=== PATIENT | female | born 1960 | race Caucasian/White ===

== ENCOUNTER 2019-11-07 19:45 | Observation (INO) | payer BC ==
[2019-11-07] MEDS ORDERED: Aspirin 81 MG Tab.Chew PO ONE (19:55)
[2019-11-07] MEDS ORDERED: Nitroglycerin 0.4 MG Tab.SL SL ONE (19:56)
[2019-11-07 20:51] LABS: CHLORIDE,CL 100 mmol/L (98-107); SODIUM,NA 134 mmol/L (136-145)
[2019-11-07] MEDS ORDERED: Iopamidol 755 Mg/ML 100 ML Bottle ONE (20:58)
[2019-11-07] MEDS: Sodium Chloride 0.9% 10 ML Syringe FLUSH PRN ×2 (21:23→22:33)
--- NOTE | 2019-11-07 21:33 | EDM.PDOC ---
ED HPI GENERAL MEDICAL PROBLEM - General Chief Complaint: Chest Pain Stated Complaint: chest pain Time Seen by Provider: 11/07/19 19:50 Source of Information: Reports: Patient History Limitations: Reports: No Limitations - History of Present Illness INITIAL COMMENTS - FREE TEXT/NARRATIVE: Chest pain on/off since last night. Woke patient at 2am. Motrin seemed to help. At times radiates to neck and once to arm. Neck feels tight when this happens. No history of similar issues in past. No injuries. [place] like usual self all day yesterday. No history of CAD/CO. Denies SOB/sweating. Did have mild nausea on and off. No fevers. Negative Covid test a week ago. No other changes reported. No change in pain with eat/drink/burp/laying down/being active. Pain is not so much anterior chest at this time, but now is more so between shoulder blades. Chest Pain Score (Numeric/FACES): 3 - Related Data Allergies Allergy/AdvReac Type Severity Reaction Status Date / Time diphenhydramine AdvReac Nausea and Verified 11/07/19 19:58 [From Benbaudilioryl] Vomiting Home Meds: Home Meds Calcium Carb/D3/Magnesium/Zinc [Bertin Mag Zinc + D Tablet] 1 each PO DAILY 11/07/19 [History] Cholecalciferol (Vitamin D3) [Vitamin D3] 2,000 unit PO DAILY 11/07/19 [History] Citalopram [Citalopram HBr] 20 mg PO DAILY 11/07/19 [History] Levothyroxine Sodium [Synthroid] 112 mcg PO DAILY 11/07/19 [History] Rosuvastatin [Crestor] 5 mg PO DAILY 11/07/19 [History] lisinopriL [Prinivil] 2.5 mg PO DAILY 11/07/19 [History] metFORMIN HCl [Metformin HCl] 500 mg PO BID 11/07/19 [History] Past Medical History HEENT History: Reports: Impaired Vision, Other (See Below) Other HEENT History: TMJ Cardiovascular History: Reports: High Cholesterol Respiratory History: Reports: Sleep Apnea, Other (See Below) Other Respiratory History: CPAP at night Gastrointestinal History: Reports: None Genitourinary History: Reports: None 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: Musculoskeletal History: Reports: None Neurological History: Reports: None Psychiatric History: Reports: Anxiety, Depression Endocrine/Metabolic History: Reports: Diabetes, Type II, Hypothyroidism Hematologic History: Reports: None Immunologic History: Reports: None Oncologic (Cancer) History: Reports: Breast Dermatologic History: Reports: None - Infectious Disease History Infectious Disease History: Reports: Chicken Pox - Past Surgical History Head Surgeries/Procedures: Reports: None HEENT Surgical History: Reports: Oral Surgery Cardiovascular Surgical History: Reports: None Respiratory Surgical History: Reports: None GI Surgical History: Reports: Colonoscopy Female Surgical History: Reports: Tubal Ligation Neurological Surgical History: Reports: None Musculoskeletal Surgical History: Reports: Carpal Tunnel Oncologic Surgical History: Reports: Biopsy of Breast, Lumpectomy Dermatological Surgical History: Reports: None Social & Family History - Family History Cardiac: Reports: Stent - Tobacco Use Smoking Status *Q: Never Smoker - Caffeine Use Caffeine Use: Reports: Soda - Recreational Drug Use Recreational Drug Use: No ED ROS GENERAL - Review of Systems Review Of Systems: See Below Constitutional: Reports: No Symptoms HEENT: Reports: No Symptoms Respiratory: Reports: No Symptoms. Denies: Shortness of Breath, Wheezing, Pleuritic Chest Pain, Cough, Sputum, Hemoptysis Cardiovascular: Reports: Chest Pain. Denies: Dyspnea on Exertion, Edema, Light headedness, Orthopnea, Palpitations, PND, Syncope GI/Abdominal: Reports: Nausea. Denies: Abdominal Pain, Constipation, Diarrhea, Vomiting : Reports: No Symptoms Musculoskeletal: Reports: No Symptoms Skin: Reports: No Symptoms Neurological: Reports: No Symptoms Psychiatric: Reports: No Symptoms Hematologic/Lymphatic: Reports: No Symptoms ED EXAM, GENERAL - Physical Exam Exam: See Below Exam Limited By: No Limitations General Appearance: Alert, WD/WN, No Apparent Distress Eye Exam: Bilateral Eye: EOMI, PERRL Ears: Normal External Exam, Hearing Grossly Normal Nose: No: Nasal Deformity, Nasal Swelling, Nasal Drainage Throat/Mouth: Normal Lips, Normal Voice, No Airway Compromise Head: Atraumatic, Normocephalic Neck: Normal Inspection, Supple, Non-Tender, Full Range of Motion. No: Lymphadenopathy (L), Lymphadenopathy (R) Respiratory/Chest: No Respiratory Distress, Lungs Clear, Normal Breath Sounds, No Accessory Muscle Use, Other (Some tenderness with palpation of soft tissue above left scapula which partially reproduces patient's pain) Cardiovascular: Normal Peripheral Pulses, Regular Rate, Rhythm, No Edema, No Murmur GI/Abdominal: Soft, Non-Tender (Female) Exam: Deferred Rectal (Female) Exam: Deferred Back Exam: Paraspinal Tenderness (above left medial scapular border), Vertebral Tenderness. No: CVA Tenderness (L), CVA Tenderness (R), Muscle Spasm Extremities: Normal Inspection, Normal Range of Motion, Non-Tender, No Pedal Edema, Normal Capillary Refill Neurological: Alert, Oriented, Normal Cognition, Normal Gait, No Motor/Sensory Deficits Psychiatric: Normal Affect, Normal Mood Skin Exam: Warm, Dry, Intact, Normal Color EKG INTERPRETATION EKG Date: 11/07/19 Time: 19:56 Rhythm: NSR Rate (Beats/Min): 79 Cable: Normal P-Wave: Present QRS: Normal ST-T: Normal QT: Normal Course - Vital Signs Last Recorded V/S: Last Vital Signs Temp 36.9 C 11/07/19 19:50 Pulse 67 11/07/19 20:25 Resp 17 11/07/19 20:25 BP 121/74 11/07/19 20:25 Pulse Ox 98 11/07/19 20:25 - Orders/Labs/Meds Orders: Active Orders 24 hr Category Date Time Status EKG Documentation Completion [RC] ASDIRECTED Care 11/07/19 19:55 Ordered Chest 2V [CR] Stat Exams 11/07/19 19:54 Ordered PE Chest [Ang Chest] [CT] Stat Exams 11/07/19 20:42 Ordered UA W/MICROSCOPIC [URIN] Stat Lab 11/07/19 19:55 Ordered Magnesium Sulfate/D5W [Magnesium Sulfate in D5W 100 Med 11/07/19 20:42 Ordered Premix] 1 gm Premix Bag 1 bag IV ONETIME Sodium Chloride 0.9% [Saline Flush] Med 11/07/19 19:55 Ordered 10 ml FLUSH ASDIRECTED PRN Saline Lock Insert [OM.PC] Stat Oth 11/07/19 19:54 Ordered Medication Orders Magnesium Sulfate/Dextrose 1 (gm/ Premix) 100 mls @ 100 mls/hr IV ONETIME ONE Stop: 11/07/19 21:41 Last Admin: 11/07/19 21:24 Dose: 100 mls/hr Documented by: RAEANN Sodium Chloride (Saline Flush) 10 ml FLUSH ASDIRECTED PRN PRN Reason: Keep Vein Open Last Admin: 11/07/19 21:23 Dose: 10 ml Documented by: RAEANN Labs: Laboratory Tests 11/07/19 11/07/19 11/07/19 Range/Units 20:10 20:10 20:10 WBC 6.3 (4.0-10.2) K/uL RBC 4.32 (3.77-5.09) M/uL Hgb 13.1 (11.7-15.5) g/dL Hct 38.9 (34.0-46.0) % MCV 90.0 (84.0-98.0) fL MCH 30.3 (28.2-33.3) pg MCHC 33.7 (31.7-36.0) g/dL RDW 12.4 (11.2-14.1) % Plt Count 229 (150-350) K/uL Neut % (Auto) 55.6 (45.0-80.0) % Lymph % (Auto) 33.0 (10.0-50.0) % [place] % (Auto) 8.4 (2.0-14.0) % Eos % (Auto) 2.7 (0.0-5.0) % Baso % (Auto) 0.3 (0.0-2.0) % Neut # (Auto) 3.53 (1.40-7.00) K/uL Lymph # (Auto) 2.09 (0.50-3.50) K/uL [place] # (Auto) 0.53 (0.00-1.00) K/uL Eos # (Auto) 0.17 (0.00-0.50) K/uL Baso # (Auto) 0.02 (0.00-0.20) K/uL D-Dimer, Quantitative 675 H (0-400) ng/mL Sodium 134 L (136-145) mmol/L Potassium 3.7 (3.5-5.1) mmol/L Chloride 100 (98-107) mmol/L Carbon Dioxide 29.7 (21.0-32.0) mmol/L BUN 12 (7-18) mg/dL Creatinine 0.56 (0.51-1.17) mg/dL Est Cr Clr Drug Dosing 103.89 mL/min Estimated GFR (MDRD) > 60 mL/min Glucose 144 H (74-106) mg/dL Lactic Acid (0.4-2.0) mmol/L Calcium 9.0 (8.5-10.1) mg/dL Magnesium 1.7 L (1.8-2.4) mg/dL Total Bilirubin 0.2 (0.2-1.0) mg/dL AST 33 (15-37) U/L ALT 43 (12-78) U/L Alkaline Phosphatase 69 (46-116) IU/L Troponin I 0.000 (0.000-0.056) ng/mL NT-Pro-B Natriuret Pep 8 (0-125) pg/mL Total Protein 7.7 (6.4-8.2) g/dL Albumin 3.8 (3.4-5.0) g/dL TSH, Ultra Sensitive (0.358-3.740) mIU/mL 11/07/19 11/07/19 Range/Units 20:10 20:10 WBC (4.0-10.2) K/uL RBC (3.77-5.09) M/uL Hgb (11.7-15.5) g/dL Hct (34.0-46.0) % MCV (84.0-98.0) fL MCH (28.2-33.3) pg MCHC (31.7-36.0) g/dL RDW (11.2-14.1) % Plt Count (150-350) K/uL Neut % (Auto) (45.0-80.0) % Lymph % (Auto) (10.0-50.0) % [place] % (Auto) (2.0-14.0) % Eos % (Auto) (0.0-5.0) % Baso % (Auto) (0.0-2.0) % Neut # (Auto) (1.40-7.00) K/uL Lymph # (Auto) (0.50-3.50) K/uL [place] # (Auto) (0.00-1.00) K/uL Eos # (Auto) (0.00-0.50) K/uL Baso # (Auto) (0.00-0.20) K/uL D-Dimer, Quantitative (0-400) ng/mL Sodium (136-145) mmol/L Potassium (3.5-5.1) mmol/L Chloride (98-107) mmol/L Carbon Dioxide (21.0-32.0) mmol/L BUN (7-18) mg/dL Creatinine (0.51-1.17) mg/dL Est Cr Clr Drug Dosing mL/min Estimated GFR (MDRD) mL/min Glucose (74-106) mg/dL Lactic Acid 1.1 (0.4-2.0) mmol/L Calcium (8.5-10.1) mg/dL Magnesium (1.8-2.4) mg/dL Total Bilirubin (0.2-1.0) mg/dL AST (15-37) U/L ALT (12-78) U/L Alkaline Phosphatase (46-116) IU/L Troponin I (0.000-0.056) ng/mL NT-Pro-B Natriuret Pep (0-125) pg/mL Total Protein (6.4-8.2) g/dL Albumin (3.4-5.0) g/dL TSH, Ultra Sensitive 2.744 (0.358-3.740) mIU/mL Meds: Medications Generic Name Dose Route Start Last Admin Trade Name Freq PRN Reason Stop Dose Admin Magnesium Sulfate/Dextrose 1 100 mls @ 100 mls/hr 11/07/19 20:42 11/07/19 21:24 gm/ Premix IV 11/07/19 21:41 100 mls/hr ONETIME ONE Administration Sodium Chloride 10 ml 11/07/19 19:55 11/07/19 21:23 Saline Flush FLUSH 10 ml ASDIRECTED PRN Administration Keep Vein Open Discontinued Medications Generic Name Dose Route Start Last Admin Trade Name Freq PRN Reason Stop Dose Admin Aspirin 324 mg 11/07/19 19:55 11/07/19 20:02 Aspirin PO 11/07/19 19:56 324 mg ONETIME ONE Administration Iopamidol Confirm 11/07/19 20:58 11/07/19 21:19 Isovue-370 (76%) Administered 11/07/19 20:59 100 ml Dose Administration 100 ml .ROUTE .STK-MED ONE Nitroglycerin 0.4 mg 11/07/19 19:56 11/07/19 20:02 Nitrostat SL 11/07/19 19:57 0.4 mg ONETIME ONE Administration - Radiology Interpretation Free Text/Narrative:: Chest xray overall unremarkable for acute changes - Re-Assessments/Exams Free Text/Narrative Re-Assessment/Exam: 11/07/19 21:38 Troponin negative. DDimer elevated. Magnesium low. Labs overall unremarkable as was EKG and chest xray. Nitro SL eliminated patient's pain complaint. Chest CT performed to rule out PE. Results pending at this time. No SOB noted. Normal O2 sats. Vital signs stable. Admit observation/rule out CO Departure - Departure Time of Disposition: 21:40 Disposition: Refer to Observation Condition: Good Clinical Impression: Chest pain Qualifiers: Chest pain type: unspecified Qualified Code(s): R07.9 - Chest pain, unspecified - Discharge Information *PRESCRIPTION DRUG MONITORING PROGRAM REVIEWED*: Not Applicable *COPY OF PRESCRIPTION DRUG MONITORING REPORT IN PATIENT [place]: Not Applicable Referrals: Jerry Miller PA [Primary Care Provider] - Sepsis Event Note (ED) - Evaluation Sepsis Screening Result: No Definite Risk - Focused Exam Vital Signs: Vital Signs Temp Pulse Resp BP BP Pulse Ox 11/07/19 20:25 67 17 121/74 98 11/07/19 20:15 83 16 123/75 95 11/07/19 20:02 138/78 11/07/19 20:00 80 16 113/99 H 98 11/07/19 19:50 36.9 C 76 20 138/78 97 - Problem List & Annotations (1) Chest pain SNOMED Code(s): 06858726 Code(s): R07.9 - CHEST PAIN, UNSPECIFIED Status: Acute Priority: High Current Visit: Yes Onset Date: 11/07/19 Annotation/Comment:: Central chest pain, at times radiating to back/left arm/neck. Negative troponin/EKG. Pending CT angio scan due to elevated DDimer. Admit telemetry. Serial troponins. Differential for pain includes cardiac vs GI etiology Qualifiers: Chest pain type: unspecified Qualified Code(s): R07.9 - Chest pain, unspecified (2) Hyperlipidemia SNOMED Code(s): 22652346 Code(s): E78.5 - HYPERLIPIDEMIA, UNSPECIFIED Status: Chronic Priority: Low Current Visit: No Annotation/Comment:: under therapy Qualifiers: Hyperlipidemia type: unspecified Qualified Code(s): E78.5 - Hyperlipidemia, unspecified (3) Hypothyroid SNOMED Code(s): 32646204 Code(s): E03.9 - HYPOTHYROIDISM, UNSPECIFIED Status: Chronic Priority: Low Current Visit: No Annotation/Comment:: Normal TSH level noted Qualifiers: Hypothyroidism type: unspecified Qualified Code(s): E03.9 - Hypothyroidism, unspecified (4) Diabetes mellitus, type II SNOMED Code(s): 69607773 Code(s): E11.9 - TYPE 2 DIABETES MELLITUS WITHOUT COMPLICATIONS Status: Acute Priority: Low Current Visit: No Qualifiers: Diabetes mellitus shelter insulin use: without nutrition representative use Diabetes mellitus complication status: without complication Qualified Code(s): E11.9 - Type 2 diabetes mellitus without complications (5) Hypomagnesemia SNOMED Code(s): 174549039 Code(s): E83.42 - HYPOMAGNESEMIA Status: Chronic Priority: Medium Current Visit: Yes Annotation/Comment:: Mag replacement ordered as low mag can contribute to musculo-skeletal pain complaints. - Problem List Review Problem List Initiated/Reviewed/Updated: Yes - My Orders Last 24 Hours: My Active Orders 11/07/19 19:54 Chest 2V [CR] Stat Saline Lock Insert [OM.PC] Stat 11/07/19 19:55 EKG Documentation Completion [RC] ASDIRECTED UA W/MICROSCOPIC [URIN] Stat Sodium Chloride 0.9% [Saline Flush] 10 ml FLUSH ASDIRECTED PRN 11/07/19 20:42 PE Chest [Ang Chest] [CT] Stat Magnesium Sulfate/D5W [Magnesium Sulfate in D5W 100 Premix] 1 gm Premix Bag 1 bag IV ONETIME - Assessment/Plan Admission H&P: Please use this note as an admission H&P Last 24 Hours: My Active Orders 11/07/19 19:54 Chest 2V [CR] Stat Saline Lock Insert [OM.PC] Stat 11/07/19 19:55 EKG Documentation Completion [RC] ASDIRECTED UA W/MICROSCOPIC [URIN] Stat Sodium Chloride 0.9% [Saline Flush] 10 ml FLUSH ASDIRECTED PRN 11/07/19 20:42 PE Chest [Ang Chest] [CT] Stat Magnesium Sulfate/D5W [Magnesium Sulfate in D5W 100 Premix] 1 gm Premix Bag 1 bag IV ONETIME Assessment:: as above Plan: as above. Rule out CO protocol. Magnesium replacement ordered. Stable and suitable for general supervision
[2019-11-07] MEDS ORDERED: Ondansetron 4 MG/2 ML SDV IVPUSH PRN (21:47)
[2019-11-07] MEDS ORDERED: Acetaminophen 325 MG Tab PO PRN (21:47)
[2019-11-07] MEDS ORDERED: Nitroglycerin 0.4 MG Tab.SL SL PRN (21:53)
[2019-11-07] MEDS ORDERED: Pantoprazole 40 MG Vial IVPUSH ONE (22:00)
[2019-11-07] MEDS ORDERED: Sodium Chloride 0.9% 500 ML IV ONE (22:00)
[2019-11-08] MEDS: Sodium Chloride 0.9% 10 ML Syringe FLUSH PRN ×2 (03:38→07:30)
[2019-11-08] MEDS ORDERED: Levothyroxine 112 MCG Tab PO SCH (08:00)
[2019-11-08] MEDS ORDERED: Lisinopril 5 MG Tab PO SCH (08:00)
[2019-11-08] MEDS ORDERED: Rosuvastatin 10 MG Tab PO SCH (08:00)
[2019-11-08] MEDS ORDERED: Citalopram 20 MG Tab PO SCH (08:00)
[2019-11-08 08:13] LABS: CHLORIDE,CL 103 mmol/L (98-107); SODIUM,NA 137 mmol/L (136-145)
--- NOTE | 2019-11-08 12:23 | PCM.DCSUM1 ---
Discharge Summary - Hospital Course Brief History: Admitted for further workup of chest pain Diagnosis: Stroke: No - Discharge Data Discharge Date: 11/08/19 Discharge Disposition: Home, Self-Care 01 Condition: Good - Referral to Home Health Primary Care Physician: TEVIN Benavides - Discharge Diagnosis/Problem(s) (1) Chest pain SNOMED Code(s): 89780769 ICD Code: R07.9 - CHEST PAIN, UNSPECIFIED Status: Acute Priority: High Current Visit: Yes Onset Date: 11/07/19 Problem Details: Central chest pain, at times radiating to back/left arm/neck. Negative troponin/EKG. Admited telemetry. Serial troponins performed and were normal. CT scan negative for PE but did note gall stones present. No inflammatory changes noted on report. Recommend follow up with primary care provider to arrange for stress test to more fully rule out cardiac contribution. Also HIDA scan to see if gall stones might be triggering chest pain complaint. Qualifiers: Chest pain type: unspecified Qualified Code(s): R07.9 - Chest pain, unspecified (2) Hyperlipidemia SNOMED Code(s): 87018786 ICD Code: E78.5 - HYPERLIPIDEMIA, UNSPECIFIED Status: Chronic Priority: Low Current Visit: No Problem Details: under therapy Qualifiers: Hyperlipidemia type: unspecified Qualified Code(s): E78.5 - Hyperlipidemia, unspecified (3) Hypothyroid SNOMED Code(s): 87393013 ICD Code: E03.9 - HYPOTHYROIDISM, UNSPECIFIED Status: Chronic Priority: Low Current Visit: No Problem Details: Normal TSH level noted Qualifiers: Hypothyroidism type: unspecified Qualified Code(s): E03.9 - Hypothyroidism, unspecified (4) Diabetes mellitus, type II SNOMED Code(s): 98644677 ICD Code: E11.9 - TYPE 2 DIABETES MELLITUS WITHOUT COMPLICATIONS Status: Acute Priority: Low Current Visit: No Qualifiers: Diabetes mellitus intermediate manager insulin use: without fdc use Diabetes mellitus complication status: without complication Qualified Code(s): E11.9 - Type 2 diabetes mellitus without complications (5) Hypomagnesemia SNOMED Code(s): 391006117 ICD Code: E83.42 - HYPOMAGNESEMIA Status: Chronic Priority: Medium Current Visit: Yes Problem Details: Mag replacement ordered as low mag can contribute to musculo-skeletal pain complaints. - Patient Summary/Data Hospital Course: Unremarkable course. Patient became pain-free within an hour after single Nitro given in ER. Protonix IV. Unremarkable telemetry. No return of pain. Patient had no further complaints/symptoms. Vital signs stable. Serial troponins within normal limits. Incidental finding on chest CT of gallstones. Cannot rule out gallstones contributing to substernal chest pain complaint. Plan at this time is to discharge pt home with follow up by primary provider next week to schedule HIDA scan and stress test. Precautions reviewed. To return to ER if symptoms return. - Patient Instructions Diet: Usual Diet as Tolerated (Drinking water is better than drinking Coke!) Activity: As Tolerated Driving: May Drive Today Showering/Bathing: May Shower Other/Special Instructions: Follow up next week with your primary provider and discuss having a stress test and HIDA scan scheduled. Follow up as needed/in ER if you have sudden worsening problems! - Discharge Plan *PRESCRIPTION DRUG MONITORING PROGRAM REVIEWED*: Not Applicable *COPY OF PRESCRIPTION DRUG MONITORING REPORT IN PATIENT [place]: Not Applicable Home Medications: Home Meds Calcium Carb/D3/Magnesium/Zinc [Bertin Mag Zinc-D Tablet] 1 each PO DAILY 11/07/19 [History] Cholecalciferol (Vitamin D3) [Vitamin D3] 2,000 unit PO DAILY 11/07/19 [History] Citalopram [Citalopram HBr] 20 mg PO DAILY 11/07/19 [History] Levothyroxine Sodium [Synthroid] 112 mcg PO DAILY 11/07/19 [History] Rosuvastatin [Crestor] 5 mg PO DAILY 11/07/19 [History] lisinopriL [Prinivil] 2.5 mg PO DAILY 11/07/19 [History] metFORMIN HCl [Metformin HCl] 500 mg PO BID 11/07/19 [History] Patient Handouts: Nonspecific Chest Pain, Adult Forms: ED Department Discharge Referrals: Jerry Miller PA [Primary Care Provider] - - Discharge Summary/Plan Comment DC Time >30 min.: No - General Info Date of Service: 11/08/19 Admission Dx/Problem (Free Text: chest pain Subjective Update: Feels fine. No acute complaints. Functional Status: Reports: Pain Controlled, Tolerating Diet, Ambulating, Urinating. Denies: New Symptoms - Review of Systems General: Reports: No Symptoms HEENT: Reports: No Symptoms, Glasses Pulmonary: Reports: No Symptoms Cardiovascular: Reports: No Symptoms Gastrointestinal: Reports: No Symptoms Genitourinary: Reports: No Symptoms Musculoskeletal: Reports: Other (no acute changes from baseline) Skin: Reports: No Symptoms Neurological: Reports: No Symptoms Psychiatric: Reports: No Symptoms - Patient Data Vitals - Most Recent: Last Vital Signs Temp 36.6 C 11/08/19 08:00 Pulse 71 11/08/19 08:00 Resp 16 11/08/19 08:00 BP 107/66 11/08/19 08:00 Pulse Ox 97 11/08/19 08:00 Weight - Most Recent: 74.843 kg I&O - Last 24 hours: Intake & Output 11/07/19 11/08/19 11/08/19 22:59 06:59 14:59 Intake Total 85 685 320 Output Total 0 Balance 85 685 320 Lab Results - Last 24 hrs: Laboratory Results - last 24 hr 11/07/19 11/07/19 11/07/19 Range/Units 20:10 20:10 20:10 WBC 6.3 (4.0-10.2) K/uL RBC 4.32 (3.77-5.09) M/uL Hgb 13.1 (11.7-15.5) g/dL Hct 38.9 (34.0-46.0) % MCV 90.0 (84.0-98.0) fL MCH 30.3 (28.2-33.3) pg MCHC 33.7 (31.7-36.0) g/dL RDW 12.4 (11.2-14.1) % Plt Count 229 (150-350) K/uL Neut % (Auto) 55.6 (45.0-80.0) % Lymph % (Auto) 33.0 (10.0-50.0) % [place]att % (Auto) 8.4 (2.0-14.0) % Eos % (Auto) 2.7 (0.0-5.0) % Baso % (Auto) 0.3 (0.0-2.0) % Neut # (Auto) 3.53 (1.40-7.00) K/uL Lymph # (Auto) 2.09 (0.50-3.50) K/uL Piatt # (Auto) 0.53 (0.00-1.00) K/uL Eos # (Auto) 0.17 (0.00-0.50) K/uL Baso # (Auto) 0.02 (0.00-0.20) K/uL D-Dimer, Quantitative 675 H (0-400) ng/mL Sodium 134 L (136-145) mmol/L Potassium 3.7 (3.5-5.1) mmol/L Chloride 100 (98-107) mmol/L Carbon Dioxide 29.7 (21.0-32.0) mmol/L BUN 12 (7-18) mg/dL Creatinine 0.56 (0.51-1.17) mg/dL Est Cr Clr Drug Dosing 103.89 mL/min Estimated GFR (MDRD) > 60 mL/min Glucose 144 H (74-106) mg/dL Lactic Acid (0.4-2.0) mmol/L Calcium 9.0 (8.5-10.1) mg/dL Magnesium 1.7 L (1.8-2.4) mg/dL Total Bilirubin 0.2 (0.2-1.0) mg/dL AST 33 (15-37) U/L ALT 43 (12-78) U/L Alkaline Phosphatase 69 (46-116) IU/L Troponin I 0.000 (0.000-0.056) ng/mL NT-Pro-B Natriuret Pep 8 (0-125) pg/mL Total Protein 7.7 (6.4-8.2) g/dL Albumin 3.8 (3.4-5.0) g/dL Amylase (25-115) U/L Lipase (73-393) U/L TSH, Ultra Sensitive (0.358-3.740) mIU/mL Specimen Type Urine Color Urine Appearance Urine pH (5.0-9.0) Ur Specific [place] (1.005-1.030) Urine Protein (NEGATIVE) mg/dL Urine Glucose (UA) (NEGATIVE) mg/dL Urine Ketones (NEGATIVE) mg/dL Urine Occult Blood (NEGATIVE) Urine Nitrite (NEGATIVE) Urine Bilirubin (NEGATIVE) Urine Urobilinogen (0.2-1.0) E.U./dL Ur Leukocyte Esterase (NEGATIVE) Urine RBC /HPF Urine WBC /HPF Ur Epithelial Cells /LPF 11/07/19 11/07/19 11/08/19 Range/Units 20:10 20:10 00:10 WBC (4.0-10.2) K/uL RBC (3.77-5.09) M/uL Hgb (11.7-15.5) g/dL Hct (34.0-46.0) % MCV (84.0-98.0) fL MCH (28.2-33.3) pg MCHC (31.7-36.0) g/dL RDW (11.2-14.1) % Plt Count (150-350) K/uL Neut % (Auto) (45.0-80.0) % Lymph % (Auto) (10.0-50.0) % [place]att % (Auto) (2.0-14.0) % Eos % (Auto) (0.0-5.0) % Baso % (Auto) (0.0-2.0) % Neut # (Auto) (1.40-7.00) K/uL Lymph # (Auto) (0.50-3.50) K/uL [place]att # (Auto) (0.00-1.00) K/uL Eos # (Auto) (0.00-0.50) K/uL Baso # (Auto) (0.00-0.20) K/uL D-Dimer, Quantitative (0-400) ng/mL Sodium (136-145) mmol/L Potassium (3.5-5.1) mmol/L Chloride (98-107) mmol/L Carbon Dioxide (21.0-32.0) mmol/L BUN (7-18) mg/dL Creatinine (0.51-1.17) mg/dL Est Cr Clr Drug Dosing mL/min Estimated GFR (MDRD) mL/min Glucose (74-106) mg/dL Lactic Acid 1.1 (0.4-2.0) mmol/L Calcium (8.5-10.1) mg/dL Magnesium (1.8-2.4) mg/dL Total Bilirubin (0.2-1.0) mg/dL AST (15-37) U/L ALT (12-78) U/L Alkaline Phosphatase (46-116) IU/L Troponin I (0.000-0.056) ng/mL NT-Pro-B Natriuret Pep (0-125) pg/mL Total Protein (6.4-8.2) g/dL Albumin (3.4-5.0) g/dL Amylase (25-115) U/L Lipase (73-393) U/L TSH, Ultra Sensitive 2.744 (0.358-3.740) mIU/mL Specimen Type Urinblad Urine Color Yellow Urine Appearance Clear Urine pH 7.0 (5.0-9.0) Ur Specific [place] 1.010 (1.005-1.030) Urine Protein Negative (NEGATIVE) mg/dL Urine Glucose (UA) Negative (NEGATIVE) mg/dL Urine Ketones Negative (NEGATIVE) mg/dL Urine Occult Blood Negative (NEGATIVE) Urine Nitrite Negative (NEGATIVE) Urine Bilirubin Negative (NEGATIVE) Urine Urobilinogen 0.2 (0.2-1.0) E.U./dL Ur Leukocyte Esterase Negative (NEGATIVE) Urine RBC Not seen /HPF Urine WBC Not seen /HPF Ur Epithelial Cells Few /LPF 11/08/19 11/08/19 11/08/19 Range/Units 01:03 07:40 07:40 WBC (4.0-10.2) K/uL RBC (3.77-5.09) M/uL Hgb (11.7-15.5) g/dL Hct (34.0-46.0) % MCV (84.0-98.0) fL MCH (28.2-33.3) pg MCHC (31.7-36.0) g/dL RDW (11.2-14.1) % Plt Count (150-350) K/uL Neut % (Auto) (45.0-80.0) % Lymph % (Auto) (10.0-50.0) % [place]att % (Auto) (2.0-14.0) % Eos % (Auto) (0.0-5.0) % Baso % (Auto) (0.0-2.0) % Neut # (Auto) (1.40-7.00) K/uL Lymph # (Auto) (0.50-3.50) K/uL [place]att # (Auto) (0.00-1.00) K/uL Eos # (Auto) (0.00-0.50) K/uL Baso # (Auto) (0.00-0.20) K/uL D-Dimer, Quantitative (0-400) ng/mL Sodium 137 (136-145) mmol/L Potassium 4.0 (3.5-5.1) mmol/L Chloride 103 (98-107) mmol/L Carbon Dioxide 28.1 (21.0-32.0) mmol/L BUN 8 (7-18) mg/dL Creatinine 0.57 (0.51-1.17) mg/dL Est Cr Clr Drug Dosing 102.07 mL/min Estimated GFR (MDRD) > 60 mL/min Glucose 104 (74-106) mg/dL Lactic Acid (0.4-2.0) mmol/L Calcium 8.6 (8.5-10.1) mg/dL Magnesium 2.2 (1.8-2.4) mg/dL Total Bilirubin (0.2-1.0) mg/dL AST (15-37) U/L ALT (12-78) U/L Alkaline Phosphatase (46-116) IU/L Troponin I 0.000 0.001 (0.000-0.056) ng/mL NT-Pro-B Natriuret Pep (0-125) pg/mL Total Protein (6.4-8.2) g/dL Albumin (3.4-5.0) g/dL Amylase 40 (25-115) U/L Lipase 126 (73-393) U/L TSH, Ultra Sensitive (0.358-3.740) mIU/mL Specimen Type Urine Color Urine Appearance Urine pH (5.0-9.0) Ur Specific [place] (1.005-1.030) Urine Protein (NEGATIVE) mg/dL Urine Glucose (UA) (NEGATIVE) mg/dL Urine Ketones (NEGATIVE) mg/dL Urine Occult Blood (NEGATIVE) Urine Nitrite (NEGATIVE) Urine Bilirubin (NEGATIVE) Urine Urobilinogen (0.2-1.0) E.U./dL Ur Leukocyte Esterase (NEGATIVE) Urine RBC /HPF Urine WBC /HPF Ur Epithelial Cells /LPF 11/08/19 Range/Units 07:40 WBC 6.3 (4.0-10.2) K/uL RBC 4.41 (3.77-5.09) M/uL Hgb 13.4 (11.7-15.5) g/dL Hct 39.6 (34.0-46.0) % MCV 89.8 (84.0-98.0) fL MCH 30.4 (28.2-33.3) pg MCHC 33.8 (31.7-36.0) g/dL RDW 12.4 (11.2-14.1) % Plt Count 214 (150-350) K/uL Neut % (Auto) 55.4 (45.0-80.0) % Lymph % (Auto) 33.1 (10.0-50.0) % Piatt % (Auto) 7.6 (2.0-14.0) % Eos % (Auto) 3.7 (0.0-5.0) % Baso % (Auto) 0.2 (0.0-2.0) % Neut # (Auto) 3.48 (1.40-7.00) K/uL Lymph # (Auto) 2.08 (0.50-3.50) K/uL Piatt # (Auto) 0.48 (0.00-1.00) K/uL Eos # (Auto) 0.23 (0.00-0.50) K/uL Baso # (Auto) 0.01 (0.00-0.20) K/uL D-Dimer, Quantitative (0-400) ng/mL Sodium (136-145) mmol/L Potassium (3.5-5.1) mmol/L Chloride (98-107) mmol/L Carbon Dioxide (21.0-32.0) mmol/L BUN (7-18) mg/dL Creatinine (0.51-1.17) mg/dL Est Cr Clr Drug Dosing mL/min Estimated GFR (MDRD) mL/min Glucose (74-106) mg/dL Lactic Acid (0.4-2.0) mmol/L Calcium (8.5-10.1) mg/dL Magnesium (1.8-2.4) mg/dL Total Bilirubin (0.2-1.0) mg/dL AST (15-37) U/L ALT (12-78) U/L Alkaline Phosphatase (46-116) IU/L Troponin I (0.000-0.056) ng/mL NT-Pro-B Natriuret Pep (0-125) pg/mL Total Protein (6.4-8.2) g/dL Albumin (3.4-5.0) g/dL Amylase (25-115) U/L Lipase (73-393) U/L TSH, Ultra Sensitive (0.358-3.740) mIU/mL Specimen Type Urine Color Urine Appearance Urine pH (5.0-9.0) Ur Specific [place] (1.005-1.030) Urine Protein (NEGATIVE) mg/dL Urine Glucose (UA) (NEGATIVE) mg/dL Urine Ketones (NEGATIVE) mg/dL Urine Occult Blood (NEGATIVE) Urine Nitrite (NEGATIVE) Urine Bilirubin (NEGATIVE) Urine Urobilinogen (0.2-1.0) E.U./dL Ur Leukocyte Esterase (NEGATIVE) Urine RBC /HPF Urine WBC /HPF Ur Epithelial Cells /LPF Med Orders - Current: Current Medications Acetaminophen (Tylenol) 650 mg PO Q4H PRN PRN Reason: Pain (Mild 1-3)/fever Citalopram Hydrobromide (Celexa) 20 mg PO DAILY [facility] Last Admin: 11/08/19 07:29 Dose: 20 mg Documented by: Levothyroxine Sodium (Levothyroxine) 112 mcg PO DAILY [facility] Last Admin: 11/08/19 07:29 Dose: 112 mcg Documented by: Lisinopril (Prinivil) 2.5 mg PO DAILY [facility] Last Admin: 11/08/19 07:29 Dose: 2.5 mg Documented by: Nitroglycerin (Nitrostat) 0.4 mg SL Q5M PRN PRN Reason: Chest Pain Ondansetron HCl (Zofran) 4 mg IVPUSH Q6H PRN PRN Reason: Nausea/Vomiting Rosuvastatin Calcium (Crestor) 5 mg PO DAILY [facility] Last Admin: 11/08/19 07:29 Dose: 5 mg Documented by: Sodium Chloride (Saline Flush) 10 ml FLUSH ASDIRECTED PRN PRN Reason: Keep Vein Open Last Admin: 11/08/19 07:30 Dose: 10 ml Documented by: Discontinued Medications Aspirin (Aspirin) 324 mg PO ONETIME ONE Stop: 11/07/19 19:56 Last Admin: 11/07/19 20:02 Dose: 324 mg Documented by: Magnesium Sulfate/Dextrose 1 (gm/ Premix) 100 mls @ 100 mls/hr IV ONETIME ONE Stop: 11/07/19 21:41 Last Admin: 11/07/19 21:24 Dose: 100 mls/hr Documented by: Magnesium Sulfate/Dextrose 1 (gm/ Premix) 100 mls @ 100 mls/hr IV ONETIME ONE Stop: 11/08/19 03:59 Last Admin: 11/08/19 03:37 Dose: 100 mls/hr Documented by: Sodium Chloride (Normal Saline) 500 mls @ 100 mls/hr IV ONETIME ONE Stop: 11/08/19 02:59 Last Admin: 11/07/19 22:30 Dose: 100 mls/hr Documented by: Iopamidol (Isovue-370 (76%)) Confirm Administered Dose 100 ml .ROUTE .STK-MED ONE Stop: 11/07/19 20:59 Last Admin: 11/07/19 21:19 Dose: 100 ml Documented by: Nitroglycerin (Nitrostat) 0.4 mg SL ONETIME ONE Stop: 11/07/19 19:57 Last Admin: 11/07/19 20:02 Dose: 0.4 mg Documented by: Pantoprazole Sodium (Protonix Iv) 40 mg IVPUSH ONETIME ONE Stop: 11/07/19 22:01 Last Admin: 11/07/19 22:30 Dose: 40 mg Documented by: - Exam General: Reports: Alert, Oriented, Cooperative, No Acute Distress HEENT: Reports: Pupils Equal, Pupils Reactive, EOMI, Mucous Membr. Moist/[place] Neck: Reports: Supple Lungs: Reports: Clear to Auscultation, Normal Respiratory Effort Cardiovascular: Reports: Regular Rate, Regular Rhythm GI/Abdominal Exam: Normal Bowel Sounds, Soft, Non-Tender, No Distention (Female) Exam: Deferred Rectal (Female) Exam: Deferred Back Exam: Denies: CVA Tenderness (L), CVA Tenderness (R), Muscle Spasm Extremities: Normal Inspection, Normal Capillary Refill Skin: Reports: Warm, Dry Neurological: Reports: No New Focal Deficit Psy/Mental Status: Reports: Alert, Normal Affect, Normal Mood EKG INTERPRETATION EKG Date: 11/08/19 Time: 09:13 Rhythm: NSR Rate (Beats/Min): 67 [place]: Normal P-Wave: Present QRS: Normal ST-T: Normal QT: Normal Comparison: No Change
== END 2019-11-08 13:14 | disposition home or self-care (01) ==
LOC: LL.ED 19:45 → UNDOADMOB 21:05 → LL.MS 21:05
PROVIDERS: ADMIT Emergency Medicine; ATTEND Emergency Medicine
DX: R07.9 Chest pain, unspecified (principal); E78.00 Pure hypercholesterolemia, unspecified; G47.30 Sleep apnea, unspecified; E11.9 Type 2 diabetes mellitus without complications; E03.9 Hypothyroidism, unspecified; F41.9 Anxiety disorder, unspecified; F32.9 Major depressive disorder, single episode, unspecified; E78.5 Hyperlipidemia, unspecified; E83.42 Hypomagnesemia; Z88.8 Allergy status to other drugs, medicaments and biological substances; Z79.899 Other long term (current) drug therapy; Z79.84 Long term (current) use of oral hypoglycemic drugs
CPT/HCPCS: 36415; 71046; 71275; 80048; 80053; 81001; 82150; 83605; 83690; 83735; 83880; 84443; 84484; 85025; 85379; 93005; 93010; 96361; 96365; 96366; 96375; 99217; 99219; 99285-25; A9270-GY; C9113; G0378; J3475; J7040; Q9967